=== PATIENT | male | born 2000 | race Caucasian/White ===

== ENCOUNTER 2022-06-02 08:54 | Emergency (ER) | payer OTHER ==
[~2022-06-02] VITALS: Ht 177.8 cm; Wt 59.9 kg
[~2022-06-02 08:54] MED LIST: BACTROBAN OINT22 GM TP; SEPTRA DS TABLE1 TAB PO
== END 2022-06-02 14:30 | disposition home or self-care (01) ==
LOC: ER 08:54
DX: N50.819 Testicular pain, unspecified (principal); Z88.0 Allergy status to penicillin; Z91.013 Allergy to seafood